=== PATIENT | male | born 1995 | race Two or more races ===

== ENCOUNTER 2025-02-25 01:01 | Emergency (ER) | payer MEDICAID, SELFPAY ==
[2025-02-25 01:03] VITALS: BMI 18.1
--- NOTE | 2025-02-25 01:17 | EKG_ITS ---
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
[2025-02-25 01:21] VITALS: BP 147/84; PULSE 85; RESP 20; TEMP 36.6; O2SAT 100
--- NOTE | 2025-02-25 01:28 | PD.EDCHEST ---
ED Chest Pain RME/HPI General Chief Complaint: Chest Pain Stated Complaint: CHEST TIGHTNESS Time Seen by Provider: 02/25/25 01:31 Arrival date/time: 02/25/25 01:01 RME / HPI RME / HPI narrative: This section includes all my notes and documentations, including HPI, PE, and ED course. Charbel Joshi MD HPI: 29yo male with no significant past medical history presents to the ED for complaints of burning chest pressure and tingling just [employer]. Patient smoked marijuana a couple hours prior to arrival and now has burning chest pain and feels tingling throughout his body. No shortness of breath, fever, nausea, vomiting or any other associated symptoms. No other complaints reported. ROS: All negative except as documented in HPI. Physical Exam: General: Alert and oriented. Appears anxious. Eyes: Conjunctivae and lids clear. ENT: No nasal congestion. Neck: Supple. Heart: RRR. Lungs: No respiratory distress. Good air movement. No rhonchi, wheezing, rales. Abdomen: Soft and nontender. Normal bowel sounds. No distension. No rebound or guarding. Back: No CVA tenderness. Skin: Warm and dry. Neuro: Alert and oriented X 3. I reviewed all diagnostic test results. My interpretation of the EKG is NSR with no ST-T changes. Blood tests are unremarkable except for Potassium 3.1. At this point, diagnoses include chest pain from anxiety caused by marijuana. Treatment here included Clonidine, Metoprolol, and Potassium. Significant improvement noted. Recommended more outpatient cardiac workup. Based on my best medical judgment, made decision no further evaluation or treatment indicated at this time. Patient understands and agrees to the discharge instructions customized and printed, see below. Discharge instructions from Dr. Joshi: 1. After extensive evaluation, there is no life-threatening condition. Such as heart attack. 2. Your symptoms may be due to underlying stress or anxiety or nerves. 3. Avoid all drugs. 4. See a private doctor on 02/26/2025. To make sure there is no serious underlying heart condition, ask to help you get more tests for your heart that cannot be done here in the ER. Such as Holter Monitor (cardiac monitoring at home from a day to even a month), heart stress test (on treadmill or with medication), echocardiogram (imaging of your heart structures), heart catherization (checking for blockages in your heart arteries), and a referral to see a [employer] Superintendent. 5. Seek immediate medical care with worsening or with any concerns. Charbel Joshi MD Related Data Allergies Allergy/AdvReac Type Severity Reaction Status Date / Time No Known Allergies Allergy Verified 02/25/25 01:10 Review of Systems Review of Systems Systems Reviewed: All systems reviewed, normal except as documented Past Medical History Social History SMOKING STATUS: Never smoker ED Exam Narrative Physical exam: As noted in HPI. Course Course Course Narrative: . Quality Measures none Orders Category Date Time Status EKG (ED ONLY) *Do not use* NOW Care 02/25/25 01:17 Completed EKG (ED Only) Stat Exams 02/25/25 01:17 Draft BMP [Basic Metabolic Panel] Stat Lab 02/25/25 02:09 Completed CBC Stat Lab 02/25/25 02:09 Completed Magnesium Stat Lab 02/25/25 02:09 Completed Troponin I Stat Lab 02/25/25 02:09 Completed KCL 10% Liq UDC 15 ML Med 02/25/25 02:51 Discontinued 40 meq PO X1 ONE Metoprolol Tartrate [Lopressor] Med 02/25/25 01:32 Discontinued 25 mg PO X1 ONE cloNIDine HCL [Catapres] Med 02/25/25 01:32 Discontinued 0.1 mg PO X1 ONE Vital Signs Vital signs: Vital Signs Temperature 97.9 F 02/25/25 01:21 Pulse Rate 85 02/25/25 01:21 Respiratory Rate 20 02/25/25 01:21 Blood Pressure 147/84 H 02/25/25 01:21 Pulse Oximetry (%) 100 02/25/25 01:21 Oxygen Delivery Method Room Air 02/25/25 01:21 Chest Pain MDM Narrative MDM Narrative:: Scribe Attestation: 02/25/25 Missy Sow am scribing for and in the presence of Dr. Joshi. 29yo male with no significant past medical history presents to the ED for complaints of burning chest pressure and tingling. Patient smoked marijuana a couple hours prior to arrival and now has burning chest pain and feels tingling throughout his body. No shortness of breath, fever, nausea, vomiting or any other associated symptoms. No other complaints reported. Patient data External records reviewed:: [facility] previous records (Per chart review, patient has no previous ED visits or admissions to this facility.) Clinical information provided by:: patient Social determinants that could affect healthcare access:: substance use (marijuana use) Patient has the following chronic illnesses:: none How is presenting disease/condition affected by chronic disease/condition?: no chronic disease Evaluation data The following diagnostics were reviewed and interpreted by me:: lab results and EKG tracing(s) (My interpretation of the EKG: NSR (90 bpm) with no ST-T changes. Charbel Joshi MD) Lab and/or radiology exams considered but not ordered:: none Interpretation Summary: I reviewed all diagnostic test results. My interpretation of the EKG is NSR with no ST-T changes. Blood tests are unremarkable except for Potassium 3.1. Medications / Prescriptions Medications or Prescriptions considered but not ordered:: none Medication administrations:: Medication Administration History Discontinued Medications Clonidine (Clonidine Hcl 0.1 Mg Tablet) 0.1 mg PO X1 ONE Stop: 02/25/25 01:33 Last Admin: 02/25/25 02:25 Dose: 0.1 mg Documented By: CHIOMA Metoprolol Tartrate (Metoprolol Tartrate 25 Mg Tablet) 25 mg PO X1 ONE Stop: 02/25/25 01:33 Last Admin: 02/25/25 02:26 Dose: 25 mg Documented By: CHIOMA Potassium Chloride (Potassium Chloride 10% 20 Meq/15 Ml Udc) 40 meq PO X1 ONE Stop: 02/25/25 02:52 Last Admin: 02/25/25 03:04 Dose: 40 meq Documented By: RADHA Clonidine, Metoprolol, and oral KCl. Consultations Consultation(s) initiated? (list below): No Diagnosis Chest Pain Differential Diagnosis: stable angina, unstable angina pectoris, atypical chest pain, st elevation myocardial infarction and other (Anxiety) Most likely diagnosis given after review of the tests above:: Chest pain due to anxiety from marijuana. Admission Indicated Admission indicated?: not indicated Explain why admission is indicated or not indicated:: With significant improvement and no condition needing emergent intervention, there was no indication for admission. Admission Request Was there a request for admission?: No Disposition Plan Disposition Plan: Discharge Discharge Attestation Discharge Attestation: The patient and all family members were given an opportunity to ask questions and understood the discharge instructions. Discharge instructions specifically effects, indications for sooner follow up or return to the emergency department, and the expected course of current diagnosis. Patient condition: Stable Discharge Plan Plan Patient Disposition: HOME (Self Care) Prescriptions/Referrals Referrals: No Primary/Family,Physician [Primary Care Provider] - In 1 week Problem List Clinical Impression: Chest pain Patient/Caregiver Discharge Instructions Education Materials: ED Chest Pain, Noncardiac Additional Instructions: Discharge instructions from Dr. Joshi: 1. After extensive evaluation, there is no life-threatening condition.? Such as heart attack. 2. Your symptoms may be due to underlying stress or anxiety or nerves.? 3. Avoid all drugs. 4. See a private doctor on 02/26/2025. To make sure there is no serious underlying heart condition, ask to help you get more tests for your heart that cannot be done here in the ER.? Such as Holter Monitor (cardiac monitoring at home from a day to even a month), heart stress test (on treadmill or with medication), echocardiogram (imaging of your heart structures), heart catherization (checking for blockages in your heart arteries), and a referral to see a [employer] Superintendent. 5. Seek immediate medical care with worsening or with any concerns.?? Print Language: Danish Stand Alone Forms: Karla Award Info., Patient Portal Info Letter
[2025-02-25 02:25] VITALS: BP 147/87; PULSE 85
[2025-02-25 02:26] VITALS: BP 147/87; PULSE 85
[2025-02-25] MEDS: METOPROLOL TARTRATE 25 MG TABLET PO (02:26)
[2025-02-25 02:27] LABS: Basophils # (Auto) 0.0 Thou/mm3 (0.0-0.2); Basophils % (Auto) 1 % (0-2.5); Eosinophils # (Auto) 0.1 Thou/mm3 (0.0-0.5); Eosinophils % (Auto) 2 % (0-10); Hematocrit 42.2 % (41.0-53.0); Hemoglobin 14.8 g/dL (13.5-16.0); Immature Granulocytes Auto 0.02 Thou/mm3 (0.00-0.00); Lymphocytes # (Auto) 1.9 Thou/mm3 (1.0-4.8); Lymphocytes % (Auto) 27 % (10-50); Mean Corpuscular HGB Conc 35.1 g/dl (31.0-37.0); Mean Corpuscular Hemoglobin 29.8 pg (25.0-35.0); Mean Corpuscular Volume 85 fL (80-100); Monocytes # (Auto) 0.4 Thou/mm3 (0.0-0.8); Monocytes % (Auto) 6 % (0-12); Neutrophils # (Auto) 4.5 Thou/mm3 (1.8-7.7); Neutrophils % (Auto) 64 % (37-80); Nucleated Red Blood Cell # 0.00 Thou/mm3 (0.00-0.00); Nucleated Red Blood Cell % 0 /100 WBC (0); Platelet Count 258 Thou/mm3 (140-440); RDW Standard Deviation 35.5 fL (35.1-43.9); Red Blood Count 4.96 Miln/mm3 (4.50-5.90); White Blood Count 7.0 Thou/mm3 (3.8-10.6)
[2025-02-25 02:49] LABS: Anion Gap 12 (7-16); BUN/Creatinine Ratio 10 Ratio (12-20); Blood Urea Nitrogen 12 mg/dL (9-23); Calcium 9.3 mg/dL (8.3-10.6); Carbon Dioxide 24.9 mMol/L (20.0-31.0); Chloride 100 mMol/L (98-107); Creatinine (Component) 1.2 mg/dL (0.6-1.3); Estimated Creatinine Clearance 67.0 mL/min (>60); Glucose 137 mg/dL (74-106); Magnesium 1.8 mg/dL (1.6-2.6); Osmolality,Calculated 275 (275-295); Potassium 3.1 mMol/L (3.4-5.1); Sodium 137 mMol/L (136-145); Troponin I < 0.002 ng/mL (0.0-0.045); eGFR > 60 See Note
[2025-02-25] MEDS: POTASSIUM CHLORIDE 10% 20 MEQ/15 ML UDC 40 MEQ PO (03:04)
[2025-02-25 03:06] VITALS: BP 135/75; PULSE 72; RESP 16; TEMP 36.8; O2SAT 98
== END 2025-02-25 03:07 | disposition home or self-care (01) ==
PROVIDERS: Emergency Provider Emergency Medicine
DX: R07.89 Other chest pain (principal)
CPT/HCPCS: 36415; 80048; 80307; 83735; 84484; 85025; 93005; 99283; A9270